=== PATIENT | female | born 1965 | race Caucasian/White ===

== ENCOUNTER 2016-11-21 16:52 | Emergency (ER) | payer SELFPAY ==
[~2016-11-21] VITALS: Ht 162.6 cm; Wt 108.9 kg
[2016-11-21 17:02] VITALS: BP 154/127
--- NOTE | 2016-11-21 18:38 | NUR ---
Patient ambulated to bed 04.
--- NOTE | 2016-11-21 18:45 | NUR ---
51F BIB SELF C/O BL LIP SWELLING X 3 DAYS; PT DENIES TRAUMA OR INJURY TO SITE; DENIES ANY KNOWN ALLERGIES AT THIS TIME; SWELLING NOTED TO BL LIPS AT THIS TIME; PT C/O THROBBING/BURNING PAIN TO BL LIPS, NON-RADIATING, 6/10 X 3 DAYS; A&OX4, PERRLA, BL LUNG SOUNDS CLEAR, RR EVEN/UNLABORED, SKIN IS WARM/DRY/INTACT; PT DENIES N/V/D AT THIS TIME; STEADY GAIT; PT RESTING IN BED W/ HOB ELEVATED AND IN LOWEST POSITION; POSITIONED FOR COMFORT; ER MD MADE AWARE OF STATUS. WILL CONTINUE TO MONITOR.
--- NOTE | 2016-11-21 19:11 | NUR ---
Pt report given to BALDEMAR SANTANA. Transfer of care at this time.
--- NOTE | 2016-11-21 19:46 | NUR ---
Patient discharged with v/s stable. Written and verbal after care instructions given and explained. Patient alert, oriented and verbalized understanding of instructions. Ambulatory with steady gait. All questions addressed prior to discharge. ID band removed. Patient advised to follow up with PMD. Rx of ACYCLOVIR 800MG given. Patient educated on indication of medication including possible reaction and side effects. Opportunity to ask questions provided and answered.
[2016-11-21 19:47] VITALS: BP 136/79
== END 2016-11-21 19:47 | disposition home or self-care (01) ==
LOC: MED 16:52
DX: B00.1 Herpesviral vesicular dermatitis (principal); R03.0 Elevated blood-pressure reading, without diagnosis of hypertension
CPT/HCPCS: 99283

== ENCOUNTER 2017-08-27 17:39 | Emergency (ER) | payer MEDICAID ==
[~2017-08-27] VITALS: Ht 160 cm; Wt 119.1 kg
[2017-08-27 17:53] VITALS: BP 151/84
--- NOTE | 2017-08-27 19:20 | NUR ---
PATIENT AMBULATED TO ER OF1.
--- NOTE | 2017-08-27 19:21 | NUR ---
PATIENT IS A 52 Y/O FEMALE WHO PRESENTS TO THE ED C/O RIGHT LEG PAIN. PT STATES, "I THINK I HAVE AN ABSCESS." PT REPORTS 9/10 BURNING RIGHT LEG PAIN THAT DOES NOT RADIATE. PT DENIES CP, SOB, REPORTS DIARRHEA DENIES VOMITING/NAUSEA. PT AAOX4, RR EVEN/UNLABORED. PT REPOSITIONED FOR COMFORT, PT SITTING IN CHAIR. ER MD DR. CARDONA NOTIFIED. WILL CONTINU TO MONITOR.
[2017-08-27 19:54] VITALS: BP 145/82
--- NOTE | 2017-08-27 19:54 | NUR ---
Patient discharged with v/s stable. Written and verbal after care instructions given and explained. Patient alert, oriented and verbalized understanding of instructions. Ambulatory with steady gait. All questions addressed prior to discharge. ID band removed. Patient advised to follow up with PMD. Rx of KEFLEX 500MG given. Patient educated on indication of medication including possible reaction and side effects. Opportunity to ask questions provided and answered.
== END 2017-08-27 19:54 | disposition home or self-care (01) ==
LOC: MED 17:39
DX: I80.9 Phlebitis and thrombophlebitis of unspecified site (principal)
CPT/HCPCS: 99283